=== PATIENT | male | born 1950 | race Caucasian/White ===

== ENCOUNTER → 2017-02-18 | Outpatient (CLI) | payer MEDICARE, OTHER | LOC: EDSTATUS 00:07 → LABLEX 08:23 | PROVIDERS: ATTEND Family Medicine | DX: Z00.00 Encounter for general adult medical examination without abnormal findings (principal) ==

== ENCOUNTER 2017-12-18 14:31 | Emergency (ER) | payer MEDICARE, OTHER ==
[2017-12-18] MEDS ORDERED: Ketorolac Tromethamine 60 MG/2 ML VIAL ONE (14:42)
[2017-12-18] MEDS ORDERED: Bupivacaine 0.5% 10 ML VIAL ONE (14:42)
== END 2017-12-18 14:57 | disposition home or self-care (01) ==
LOC: BURERS 14:31
DX: M54.5 Low back pain (principal); E11.9 Type 2 diabetes mellitus without complications; I10 Essential (primary) hypertension
CPT/HCPCS: 96372; J1885; J3490